=== PATIENT | male | born 1965 | race Caucasian/White ===

== ENCOUNTER 2024-08-04 17:49 | Inpatient (IN) | payer OTHER ==
[2024-08-04 18:35] LABS: Absolute Lymphocytes (CBC) 0.5 K/uL (0.7-4.9); Absolute Monocytes 1.4 K/uL (0.1-1.3); Basophils % 0.2 % (0-1.3); Hematocrit 48.8 % (39.6-49.0); Hemoglobin 15.2 g/dL (13.6-17.9); Lymphocytes % 2.7 % (15.3-44.8); MCH 28.3 pg (27.0-35.0); MCHC 31.1 g/dL (32.0-36.0); MCV 91.1 fL (80-100); MPV 8.3 fL (7.6-11.3); Monocytes % 7.1 % (3.3-12.3); Platelets 243 thou/uL (152-406); RBC Red Blood Cell Count 5.35 M/uL (4.33-5.43); Red Cell Distribution Width 14.5 % (12.1-15.2)
--- NOTE | 2024-08-04 18:39 | RAD REPORT ---
EXAMINATION: ONE VIEW CHEST XR CLINICAL INDICATION: CHEST PAIN TECHNIQUE: Frontal chest projection is submitted. Examination is limited by patient positioning and t echnique. COMPARISON: 11/26/2016 FINDINGS: The lungs are well inflated and clear. The heart is normal in size. No displaced fractures identified . IMPRESSION: No acute intrathoracic abnormalities.
[2024-08-04 18:42] LABS: PT Prothrombin Time 10.9 SECONDS (9.4-12.5); Protime INR 1.04
[2024-08-04] MEDS ORDERED: METOCLOPRAMIDE 10 MG/2mL INJ ONE (18:42)
[2024-08-04] MEDS ORDERED: MORPHINE 4 MG/ML SYR ONE (18:42)
[2024-08-04] MEDS ORDERED: PANTOPRAZOLE 40 MG INJ ONE (18:42)
[2024-08-04] MEDS ORDERED: NA CHLORIDE 0.9% 50 ML ONE (18:42)
[2024-08-04] MEDS ORDERED: NA CHLORIDE 0.9% 1,000 ML ONE ×2 (18:43→19:26)
[2024-08-04 18:54] LABS: ALT/SGPT 33 U/L (16-61); AST/SGOT 13 U/L (15-37); Albumin/Globulin Ratio 0.8 (1.1-1.8); Alkaline Phosphatase 118 U/L (45-117); Anion Gap 28.2 mEq/L (5.0-15.0); BUN Blood Urea Nitrogen 41 mg/dL (7-18); Bilirubin Direct 0.3 mg/dL (0-0.2); Bilirubin Indirect, Calculated 0.7 mg/dL (0.2-0.8); Globulin 3.9 g/dL (2.3-3.5); Glomerular Filtration Rate 62 ml/min (=/>90); Glucose Level 541 mg/dL (74-106); Lipase 26 U/L (13-75); Magnesium 2.7 mg/dL (1.6-2.4); NT PRO-BNP 399 pg/mL (<125); Potassium 5.2 mEq/L (3.5-5.1); Protein, Total 6.9 g/dL (6.4-8.2); Sodium Level 126 mEq/L (136-145); Troponin High Sensitivity 24.5 pg/mL (<58.9)
[2024-08-04 18:57] LABS: Bicarbonate < 8 mEq/L (21-32)
[2024-08-04] MEDS ORDERED: INSULIN REGULAR (HUMAN) 100 UNIT/ML ONE ×2 (19:21→20:27)
[2024-08-04 19:42] LABS: Blood Morphology Comment NOT SEEN (NOT SEEN); Platelet Estimate ADEQ; White Blood Cell Scan OK (OK)
--- NOTE | 2024-08-04 20:16 | RAD REPORT ---
EXAM: CT CHEST, ABDOMEN AND PELVIS WITH CONTRAST CLINICAL INDICATION: abdominal pain;Chest pain TECHNIQUE: CT chest, abdomen and pelvis was performed, following the administration of contrast, as p er department protocol. Axial, sagittal and coronal reconstructions were obtained. One or more of the following dose reduction techniques were used: Automated exposure control, adjustment of the mA a nd/or kV according to patient size, and/or iterative reconstruction. Unless otherwise specified, incidental findings do not require dedicated imaging follow-up. COMPARISON: No prior exam. FINDINGS: LUNGS: 10 mm nodule is seen abutting the superior mediastinal pleura in the medial right upper lobe. PLEURA: No pleural effusion. No pneumothorax. MEDIASTINUM AND LYMPH NODES: No mediastinal mass or fluid collection. Normal size mediastinal, hilar, and axillary lymph nodes. There is diffuse thickening of the esophagus with wall of the subscapularis measuring up to 7 mm. Fluid-filled esophagus. Small hiatal hernia. OSSEOUS STRUCTURES AND CHEST WALL: Intact. LIVER: The liver demonstrates mild fatty infiltration. No focal lesion or biliary dilatation is seen. Grossly unremarkable gallbladder. PANCREAS: No mass, ductal dilation, or pierre-pancreatic fluid. SPLEEN: Normal size. No focal lesion. ADRENALS: 18 mm right adrenal mass, indeterminate. KIDNEYS: Normal size and contour. No hydronephrosis. URINARY BLADDER: Normal contour. Significant distention. GASTROINTESTINAL TRACT: No bowel obstruction, free air, significant free fluid or abscess. Marked s tool is retained throughout the colon. APPENDIX: Appendix not visualized, but no inflammatory changes in region of appendix. LYMPH NODES: No lymphadenopathy. MUSCULOSKELETAL: No acute or suspicious osseous abnormality. OTHER: IMPRESSION: Diffuse esophageal thickening is circumferential fashion suspicious for esophagitis. Upper endoscopy may be useful for further evaluation. Significant constipation. Urinary bladder is distended. 18 mm indeterminate right renal mass. Statistically this is likely benign adenoma. Nonemergent MRI ad renal protocol may be useful for further characterization. 10 mm pulmonary nodule medial right upper lung abutting the mediastinal pleura. Consider a non-contrast chest CT at 3 months, a PET/CT, Note: These guidelines do not apply to patients younger than 35 years, immunocompromised patients, an d patients with cancer. F/u in patients with significant comorbidities as clinically warranted. For lung cancer screening, adhere to Lung-RADS guidelines. Reference: Radiology. 2017 Brian; 284(1):228-243
--- NOTE | 2024-08-04 20:25 | RAD REPORT ---
EXAM: Right upper quadrant ultrasound. CLINICAL HISTORY: gallbladder COMPARISON: None. FINDINGS: Gallbladder: Normal. Bile ducts: No intrahepatic or extrahepatic biliary dilatation. Common bile duct measures 3 mm. Limited imaging of the liver shows no concerning finding. IMPRESSION: Unremarkable exam.
[2024-08-04] MEDS ORDERED: NA CHLORIDE 0.9% 100 ML ONE (20:27)
--- NOTE | 2024-08-04 20:54 | EDPHYS ---
Physician Documentation [facility] Name: José Miguel Frankel Age: 58 yrs Sex: Male : 1965 Arrival Date: 08/04/2024 Time: 17:49 Bed 15 Private MD: ED Physician Nabil Singleton HPI: 08/04 18:15 This 58 yrs old Male presents to ER via EMS with complaints of Nausea/Vomiting, cp Constipation, Shortness Of Breath. 18:15 The patient presents to the emergency department with nausea, with "dry heaves", cp vomiting, that is continuous, abdominal pain, of the epigastric area, and radiates to the chest. 18:15 Associated signs and symptoms: Pertinent positives: anorexia, constipation, Pertinent cp negatives: fever, GI bleeding. Severity of symptoms: in the emergency department the symptoms are unchanged despite home interventions. Historical: - Allergies: 17:50 Compazine; db - PMHx: 17:50 Diabetes - NIDDM; Hypertension; db - Immunization history:: Adult Immunizations unknown. - Infectious Disease History:: Denies. - Social history:: Smoking status: Patient denies any tobacco usage or history of. ROS: 18:20 Constitutional: Positive for poor PO intake, Negative for fever, cp 18:20 Eyes: Negative for injury, pain, redness, and discharge, cp 18:20 ENT: Negative for drainage from ear(s), ear pain, difficulty swallowing, difficulty handling secretions, 18:20 Cardiovascular: Positive for chest pain, Negative for edema, palpitations, 18:20 Respiratory: Positive for shortness of breath, Negative for cough, wheezing, 18:20 Abdomen/GI: Positive for nausea and vomiting, constipation, anorexia, Negative for diarrhea, hematemesis, black/tarry stool, rectal bleeding, 18:20 Neuro: Negative for altered mental status, syncope, 18:20 All other systems are negative, Exam: 18:07 ECG was reviewed by the Attending Physician. cp 18:25 Constitutional: The patient appears in no acute distress, alert, awake, cp non-diaphoretic, non-toxic, well developed, well nourished, uncomfortable, 18:25 Head/Face: Normocephalic, atraumatic. cp 18:25 Eyes: Periorbital structures: appear normal, Conjunctiva: normal, no exudate, no injection, Sclera: no appreciated abnormality, Lids and lashes: appear normal, bilaterally, 18:25 ENT: External ear(s): are unremarkable, Nose: is normal, Mouth: Lips: moist, Oral mucosa: moist, Posterior pharynx: Airway: no evidence of obstruction, patent, 18:25 Chest/axilla: Inspection: normal, 18:25 Cardiovascular: Rate: tachycardic, Rhythm: regular, Edema: is not appreciated, JVD: is not appreciated, 18:25 Respiratory: the patient does not display signs of respiratory distress, Respirations: shallow respirations, that is mild, Breath sounds: are clear throughout, no decreased breath sounds, no stridor, no wheezing, 18:25 Abdomen/GI: Inspection: abdomen appears normal, Bowel sounds: active, all quadrants, Palpation: soft, in all quadrants, severe abdominal tenderness, in the epigastric area, voluntary guarding, is elicited in the epigastric area, 18:25 Neuro: Orientation: to person, place \\T\\ time. Mentation: is normal, Motor: moves all fours, no focal deficits, Sensation: no obvious gross deficits, Vital Signs: 17:49 BP 183 / 76; Pulse 109; Resp 24; Temp 97.3; Pulse Ox 100% on R/A; Weight 94.8 kg; db Height 5 ft. 10 in. ; 18:30 BP 178 / 91; Pulse 109; Resp 24; Pulse Ox 100% on R/A; db 17:49 Body Mass Index 29.99 (94.80 kg, 177.8 cm) db MDM: 18:09 Medical Screening Exam initiated cp 19:00 Differential diagnosis: gastritis, pancreatitis, viral gastroenteritis, cp gastroenteritis, dehydration, DKA, sepsis. 21:00 Data reviewed: vital signs, nurses notes, lab test result(s), EKG, radiologic studies, cp CT scan, plain films, and as a result, I will admit patient. 21:00 Management of patient was discussed with the following: Hospitalist: DR Moulton will cp admit to hospitalist services after discussion. I considered the following discharge prescriptions or medication management in the emergency department Medications were administered in the Emergency Department. See MAR. Independent interpretation of the following test(s) in the Emergency Department EKG: See my EKG interpretation above. Care significantly affected by the following chronic conditions: Diabetes, Hypertension. Counseling: I had a detailed discussion with the patient and/or guardian regarding the historical points, exam findings, and any diagnostic results supporting the discharge/admit diagnosis, the presence of at least one elevated blood pressure reading (>120/80) during this emergency department visit, lab results, radiology results, the need for further work-up and treatment in the hospital. Response to treatment: the patient's symptoms have mildly improved after treatment. 08/04 18:12 Order name: Basic Metabolic Panel; Complete Time: 19:16 cp 08/04 19:18 Interpretation: Reviewed. cp 08/04 18:12 Order name: CBC with Diff; Complete Time: 19:55 cp 08/04 18:57 Interpretation: Normal except: WBC 18.90; MCHC 31.1; ALINE% 90.0; LYM% 2.7; NEUT A 17.0; cp LYMA 0.5; MNA 1.4. 08/04 18:12 Order name: LFT's; Complete Time: 19:16 cp 08/04 19:55 Interpretation: Normal except: AST 13; ALK 118; BILID 0.3; ALB 3.0; GLOB 3.9; A/G 0.8. cp 08/04 18:12 Order name: Magnesium; Complete Time: 19:16 cp 08/04 18:12 Order name: NT PRO-BNP; Complete Time: 19:16 cp 08/04 18:12 Order name: PT-INR; Complete Time: 18:57 cp 08/04 18:12 Order name: Troponin HS; Complete Time: 19:16 cp 08/04 18:12 Order name: Lipase; Complete Time: 19:16 cp 08/04 18:15 Order name: Glucose, Ancillary Testing; Complete Time: 18:24 EDMS 08/04 19:43 Order name: CBC Smear Scan; Complete Time: 19:55 EDMS 08/04 19:55 Interpretation: Reviewed. cp 08/04 20:06 Order name: Glucose, Ancillary Testing; Complete Time: 20:08 EDMS 08/04 20:08 Interpretation: Reviewed. cp 08/04 20:37 Order name: Urinalysis W/Microscopic; Complete Time: 01:07 cp 08/04 20:52 Order name: ABG: VBG cp 08/04 20:52 Order name: Lactate w/ 2H reflex if indic.; Complete Time: 01:07 cp 08/04 20:52 Order name: BETA HYDROXYBUTYRATE; Complete Time: 01:07 cp 08/04 22:06 Order name: Glucose, Ancillary Testing; Complete Time: 01:07 EDMS 08/04 22:13 Order name: Basic Metabolic Panel EDMS 08/04 22:13 Order name: Basic Metabolic Panel EDMS 08/04 22:13 Order name: Basic Metabolic Panel EDMS 08/04 22:13 Order name: Basic Metabolic Panel EDMS 08/04 22:13 Order name: CBC with Automated Diff EDMS 08/04 22:13 Order name: CBC with Automated Diff EDMS 08/04 22:13 Order name: CBC with Automated Diff EDMS 08/04 22:13 Order name: CBC with Automated Diff EDMS 08/04 23:04 Order name: Glucose, Ancillary Testing; Complete Time: 01:07 EDMS 08/05 00:08 Order name: Glucose, Ancillary Testing; Complete Time: 01:07 EDMS 08/05 01:12 Order name: Glucose, Ancillary Testing EDMS 08/05 02:18 Order name: Glucose, Ancillary Testing EDMS 08/05 03:35 Order name: Glucose, Ancillary Testing EDMS 08/04 18:12 Order name: XRAY Chest (1 view); Complete Time: 18:57 cp 08/04 18:57 Interpretation: Report review. cp 08/04 18:36 Order name: US Abdomen Limited; Complete Time: 20:37 cp 08/04 20:37 Interpretation: Report reviewed. cp 08/04 19:19 Order name: CT Chest, Abdomen, Pelvis - W/Contrast; Complete Time: 20:37 cp 08/04 18:12 Order name: EKG; Complete Time: 18:12 cp 08/04 18:12 Order name: Cardiac monitoring; Complete Time: 18:21 cp 08/04 18:12 Order name: EKG - Nurse/Tech; Complete Time: 18:21 cp 08/04 18:12 Order name: IV Saline Lock; Complete Time: 18:21 cp 08/04 18:12 Order name: Labs collected and sent; Complete Time: 18:55 cp 08/04 18:12 Order name: O2 Per Protocol; Complete Time: 18:21 cp 08/04 18:12 Order name: O2 Sat Monitoring; Complete Time: 18:21 cp EC:07 Rate is 109 beats/min. Rhythm is regular. PA interval is normal. QRS interval is cp normal. QT interval is normal. T waves are Inverted in lead aVR. Interpreted by me. Reviewed by me. Administered Medications: 18:45 Drug: Pantoprazole IVP 40 mg IVP once Route: IVP; Site: right antecubital; db 19:00 Follow up: Response: No adverse reaction rg5 18:45 Drug: NS 0.9% IV 1000 ml IV at 1 bolus Per protocol; to be given as a bolus over 60 db minutes Route: IV; Rate: 1 bolus; Site: right antecubital; 19:30 Follow up: IV Status: Completed infusion rg5 18:45 Drug: metoCLOPramide IVP 10 mg IVP once; over 1 to 2 minutes Route: IVP; Site: right db antecubital; 19:00 Follow up: Response: No adverse reaction rg5 18:45 Drug: morphine IVP or IV 4 mg IVP once over 4 mins Route: IVP; Infused Over: 4 mins; db Site: right antecubital; 19:00 Follow up: Response: No adverse reaction; Pain is decreased rg5 19:15 Drug: Insulin Regular Human IVP 10 units IVP once {Co-Signature: 1 (nancy Trejo RN).} Route: IVP; Site: right antecubital; 21:00 Follow up: Response: No adverse reaction rg5 19:34 Drug: NS 0.9% IV 1000 ml IV at 1000 ml once; to be given as a bolus over 60 minutes rg5 Route: IV; Rate: 1000 ml; Site: right antecubital; 20:15 Follow up: IV Status: Completed infusion; IV Intake: 1000ml rg5 20:48 Drug: Insulin Drip - (Insulin Regular Human IVP 100 units, NS 0.9% IV 100 ml) IV at 8 rg5 units/hr continuous; Standard concentration 1unit/ml; Dose for DKA is 0.1 units/kg/hr {Co-Signature: 1 (Rose Mary Trejo RN).} Route: IV; Rate: 8 units/hr; Site: right antecubital; Point of Care Testing: Blood Glucose: 17:50 Blood Glucose: High (>450 mg/dL); db Ranges: Critical Glucose Levels:Adult <50 mg/dl or >400 mg/dl <40 mg/dl or >180 mg/dl Disposition: 08/05 20:30 Co-signature as Attending Physician, Nabil Singleton MD I reviewed the patient's care rt provided by the Advanced Practice Provider and agree with the diagnosis and treatment plan. Disposition Summary: 08/04/24 20:53 Hospitalization Ordered Notes: Hospitalization Status: Inpatient Admission cp Provider: Rafy Moulton cp Location: Intensive Care Unit cp Condition: Stable cp Problem: new cp Symptoms: have improved cp Bed/Room Type: Standard cp Room Assignment: 7-(08/05/24 01:52) cg Diagnosis - Diabetes mellitus due to underlying condition with ketoacidosis cp - Nausea with vomiting, unspecified cp - Epigastric pain cp - Chest pain, unspecified cp Forms: - Medication Reconciliation Form cp - SBAR form cp - Leadership Thank You Letter cp Critical care time excluding procedures: 01:08 Critical care time: Bedside Care: 5 minutes, Consultation: 25 minutes, Family cp Intervention: 5 minutes. Total time: 35 minutes Signatures: Dispatcher [employer] EDID Michael Urena PA PA cp Sole Pena, RN RN cg Anitha Ramirez, RN RN db Nabil Singleton MD MD rt Malachi Avilez RN RN rg5 Rose Mary Trejo RN me1 Corrections: (The following items were deleted from the chart) 08/04 20:37 20:37 Urinalysis W/Microscopic+U.LAB.BRZ ordered. [facility] 08/05 01:08 08/04 20:53 Diabetes mellitus due to underlying condition with hyperglycemia cp cp 08/05 01:52 08/04 20:53 cp cg
--- NOTE | 2024-08-04 20:54 | ER ---
Nurse's Notes [facility] Name: José Miguel Frankel Age: 58 yrs Sex: Male : 1965 Arrival Date: 08/04/2024 Time: 17:49 Bed 15 Private MD: Diagnosis: Diabetes mellitus due to underlying condition with ketoacidosis;Nausea with vomiting, unspecified;Epigastric pain;Chest pain, unspecified Presentation: 08/04 17:49 Chief complaint: EMS states: N/V STARTED AFTER TAKING OZEMPIC LAST THURSDAY. STATES db STOPPED TAKING OZEMPIC 1 YEAR AGO AND RESTARTED ON THURSDAY. TODAY HAS DIFFICULTY TAKING A DEEP BREATH. HAS NOT TAKEN INSULIN NOR CHECKED SUGAR SINCE THURSDAY. BG FOR EMS 416, PT TACHY CARDIC. GIVEN ASA 325 MG BY EMS. WENT [facility] AND SENT TO ER FOR ST DEPRESSION. Coronavirus screen: Client denies travel out of the [place] in the last 14 days. At this time, the client does not indicate any symptoms associated with coronavirus-19. Ebola Screen: Patient negative for fever greater than or equal to 101.5 degrees Fahrenheit, and additional compatible Ebola Virus Disease symptoms Patient denies exposure to infectious person. Patient denies travel to an Ebola-affected area in the 21 days before illness onset. No symptoms or risks identified at this time. Initial Sepsis Screen: Does the patient meet any 2 criteria? HR > 90 bpm. No. Patient's initial sepsis screen is negative. Does the patient have a suspected source of infection? No. Patient's initial sepsis screen is negative. Risk Assessment: Do you want to hurt yourself or someone else? Patient reports no desire to harm self or others. Onset of symptoms was July 31, 2024. Care prior to arrival: Medication(s) given: Normal saline infusion, 500 mL, IV initiated. 20 GA, in the right antecubital area, Glucose check: 416. 17:49 Method Of Arrival: EMS: [facility] db 17:49 Acuity: SUMIT 3 db Triage Assessment: 17:50 General: Appears in no apparent distress. comfortable, Behavior is calm, cooperative. db Pain: Complains of pain in abdomen. Neuro: Level of Consciousness is awake, alert, obeys commands, Oriented to person, place, time, situation. Respiratory: Airway is patent Respiratory effort is even, unlabored, Respiratory pattern is regular, symmetrical. GI: Reports upper abdominal pain, constipation, nausea, vomiting. Historical: - Allergies: 17:50 Compazine; db - PMHx: 17:50 Diabetes - NIDDM; Hypertension; db - Immunization history:: Adult Immunizations unknown. - Infectious Disease History:: Denies. - Social history:: Smoking status: Patient denies any tobacco usage or history of. Screenin:16 [facility] ED Fall Risk Assessment (Adult) History of falling in the last 3 months, db including since admission No falls in past 3 months (0 pts) Confusion or Disorientation No (0 pts) Intoxicated or Sedated No (0 pts) Impaired Gait No (0 pts) Mobility Assist Device Used No (0 pt) Altered Elimination No (0 pt) Score/Fall Risk Level 0 - 2 = Low Risk Oriented to surroundings, Maintained a safe environment. Abuse screen: Denies threats or abuse. Denies injuries from another. Nutritional screening: No deficits noted. Tuberculosis screening: No symptoms or risk factors identified. Assessment: 18:14 Reassessment: SEE TRIAGE FOR INITIAL ASSESSMENT. db 19:05 General: Appears uncomfortable, Behavior is calm, cooperative, appropriate for age. rg5 19:05 Pain: Denies pain. Neuro: Level of Consciousness is awake, alert, obeys commands, rg5 Oriented to person, place, time, situation. Cardiovascular: Reports chest pain, shortness of breath. Respiratory: Reports shortness of breath at rest Airway is patent Trachea midline Respiratory effort is even, unlabored, Respiratory pattern is regular, symmetrical. GI: Abdomen is round non-distended, Abd is soft and non tender Reports upper abdominal pain, vomiting. : No signs and/or symptoms were reported regarding the genitourinary system. EENT: No deficits noted. Derm: Skin is intact, Skin is dry, Skin is normal, Skin temperature is warm. Musculoskeletal: Circulation, motion, and sensation intact. Range of motion: intact in all extremities. 22:00 Reassessment: No changes from previously documented assessment. Patient and/or family rg5 updated on plan of care and expected duration. Pain level reassessed. Patient is alert, oriented x 3, equal unlabored respirations, skin warm/dry/pink. 22:25 Reassessment: aamir (spouse) [phone]. rg5 Vital Signs: 17:49 BP 183 / 76; Pulse 109; Resp 24; Temp 97.3; Pulse Ox 100% on R/A; Weight 94.8 kg; db Height 5 ft. 10 in. ; 18:30 BP 178 / 91; Pulse 109; Resp 24; Pulse Ox 100% on R/A; db 17:49 Body Mass Index 29.99 (94.80 kg, 177.8 cm) db ED Course: 17:50 Arm band placed on Patient placed in an exam room. db 17:55 EKG done. Maintain EMS IV. Dressing intact. Good blood return noted. Site clean \T\ dry. db Gauge \T\ site: 20 G RAC. 18:08 Patient arrived in ED. db 18:09 Michael Urena PA is PHCP. cp 18:09 Nabil Singleton MD is Attending Physician. cp 18:13 Triage completed. db 18:16 Patient has correct armband on for positive identification. Bed in low position. Call db light in reach. Side rails up X 1. Client placed on continuous cardiac and pulse oximetry monitoring. NIBP monitoring applied. telemetry monitor on. Pulse ox on. NIBP on. Warm blanket given. Pillow given. 18:20 Anitha Ramirez, RN is Primary Nurse. db 18:36 XRAY Chest (1 view) In Process Unspecified. EDMS 19:05 Door closed. Noise minimized. rg5 19:05 No provider procedures requiring assistance completed. Inserted saline lock: 20 gauge rg5 in left antecubital area, using aseptic technique. Blood collected. Flushed with 10 mL NS. 19:11 Malachi Avilez, RN is Primary Nurse. rg5 20:07 CT Chest, Abdomen, Pelvis - W/Contrast In Process Unspecified. EDMS 20:19 US Abdomen Limited In Process Unspecified. EDMS 20:53 Rafy Moulton MD is Hospitalizing Provider. cp 22:30 Provided Education on: needs for admit. rg5 22:30 Patient admitted, IV remains in place. intact, No redness/swelling at site. rg5 Administered Medications: 18:45 Drug: Pantoprazole IVP 40 mg IVP once Route: IVP; Site: right antecubital; db 19:00 Follow up: Response: No adverse reaction rg5 18:45 Drug: NS 0.9% IV 1000 ml IV at 1 bolus Per protocol; to be given as a bolus over 60 db minutes Route: IV; Rate: 1 bolus; Site: right antecubital; 19:30 Follow up: IV Status: Completed infusion rg5 18:45 Drug: metoCLOPramide IVP 10 mg IVP once; over 1 to 2 minutes Route: IVP; Site: right db antecubital; 19:00 Follow up: Response: No adverse reaction rg5 18:45 Drug: morphine IVP or IV 4 mg IVP once over 4 mins Route: IVP; Infused Over: 4 mins; db Site: right antecubital; 19:00 Follow up: Response: No adverse reaction; Pain is decreased rg5 19:15 Drug: Insulin Regular Human IVP 10 units IVP once {Co-Signature: naga (nancy Trejo RN).} Route: IVP; Site: right antecubital; 21:00 Follow up: Response: No adverse reaction rg5 19:34 Drug: NS 0.9% IV 1000 ml IV at 1000 ml once; to be given as a bolus over 60 minutes rg5 Route: IV; Rate: 1000 ml; Site: right antecubital; 20:15 Follow up: IV Status: Completed infusion; IV Intake: 1000ml rg5 20:48 Drug: Insulin Drip - (Insulin Regular Human IVP 100 units, NS 0.9% IV 100 ml) IV at 8 rg5 units/hr continuous; Standard concentration 1unit/ml; Dose for DKA is 0.1 units/kg/hr {Co-Signature: naga (Rose Mary Trejo RN).} Route: IV; Rate: 8 units/hr; Site: right antecubital; Medication: 19:05 VIS not applicable for this client. rg5 Point of Care Testing: Blood Glucose: 17:50 Blood Glucose: High (>450 mg/dL); db Ranges: Intake: 20:15 IV: 1000ml; Total: 1000ml. rg5 Outcome: 20:53 Decision to Hospitalize by Provider. cp 22:00 Admitted to ER Hold. Please see [facility] for further documentation. rg5 22:00 Condition: stable 22:00 Instructed on the need for admit, 08/05 04:00 Patient left the ED. rg5 Signatures: Dispatcher [facility] Michael Baugh PA PA cp Anitha Ramirez, RN RN db Malachi Avilez RN RN rg5 Rose Mary Trejo RN me1 Corrections: (The following items were deleted from the chart) 08/04 18:54 18:30 BP 178 / 91; Pulse 109bpm; Resp 20bpm; Pulse Ox 100% RA; db db
[2024-08-04 22:01] LABS: Specific Gravity > 1.030 (1.005-1.030); Sqamous Epithelial None Seen /HPF (None Seen); Urine Bacteria None Seen /HPF (<20); Urine Bilirubin NEGATIVE (Negative); Urine Blood Negative (Negative); Urine Clarity Clear (Clear); Urine Color Colorless (Yellow); Urine Culture Reflex Order NOT NEEDED; Urine Glucose 4+ (Over) (Negative); Urine Ketones 3+ (Negative); Urine Micro Reflex YN NO BILL MICROSCOPIC; Urine Mucus Slight /HPF (None Seen); Urine Nitrite NEGATIVE (Negative); Urine Protein TRACE (Negative); Urine RBC <5 /HPF (None Seen); Urine Urobilinogen Normal (Normal); Urine WBC <5 /HPF (<5)
[2024-08-04] MEDS ORDERED: ONDANSETRON 4 MG/2 ML VIAL IV PRN (22:08)
--- NOTE | 2024-08-04 22:08 | P.HP ---
Certification for Inpatient Patient admitted to: Inpatient With expected LOS: >2 Midnights Practitioner: I am a practitioner with admitting privileges, knowledge of patient current condition, hospital course, and medical plan of care. Services: Services provided to patient in accordance with Admission requirements found in Title 42 Section 412.3 of the Code of Federal Regulations Patient History Date of Service: 08/04/24 Reason for admission: DKA History of Present Illness: Nausea, vomiting, elevated blood sugar 58-year-old male with history of diabetes, hypertension presents to the ER with complaints of nausea vomiting and elevated blood sugar. Patient reports symptoms started 4 days ago. He reports that he previously was on Ozempic and he trialed it again on Thursday. Subsequently has felt ill. He normally takes insulin he did not take it. He was having nausea vomiting and some abdominal discomfort. He denies any recent diarrhea fevers or chills. He reports he drinks occasional alcohol. He states that he recently since last fall has taken steroids as needed. For hives. He reports the last time he took steroids was several days ago. He denies taking prednisone continuously. He states that he actually is constipated currently. In the emergency room patient had a CT scan of his chest abdomen pelvis. Blood sugar was elevated. Concern for DKA. He has received IV fluids and insulin drip has been started. Allergies prochlorperazine [From Compazine] Adverse Reaction (Intermediate, Verified 11/25/16 23:32) facial twitching Home Medications: Insulin Glargine,Hum.rec.anlog [Lantus] 25 unit SQ BID 11/26/16 Metformin HCl [Glucophage*] 250 mg PO BID 11/26/16 Mv-Mn/Iron/Folic Acid/Herb 190 [Megavite Caplet] 1 each PO DAILY 11/26/16 lisinopriL [Prinivil*] 20 mg PO DAILY 11/26/16 Aspirin [Aspirin EC 81 MG] 81 mg PO DAILY #30 tablet. 11/27/16 Atorvastatin Calcium [Lipitor] 10 mg PO BEDTIME #30 tab 11/27/16 Pantoprazole [Protonix Tab*] 40 mg PO DAILYAC #30 tab 11/27/16 - Past Medical/Surgical History Diabetic: Yes -: Diabetes mellitus -: Hypertension -: Right rotator cuff surgery -: Appendectomy -: Tonsillectomy Psychosocial/ Personal History: Patient served in the . He is a web ui developer. - Family History Father -: Cancer - Social History Alcohol use: Yes CD- Drugs: No Caffeine use: Yes Review of Systems 10-point ROS is otherwise unremarkable General: Weakness Gastrointestinal: Nausea, Vomiting Physical Examination - Physical Exam General: Alert, Oriented x3 HEENT: Atraumatic, Normocephalic Respiratory: Clear to auscultation bilaterally, Normal air movement Cardiovascular: Regular rate/rhythm, Normal S1 S2 Gastrointestinal: Soft and benign, Non-distended Musculoskeletal: No clubbing, No swelling Integumentary: No rashes - Studies Laboratory Data (last 24 hrs) 08/04/24 08/04/24 08/04/24 18:25 18:25 18:25 WBC 18.90 H Hgb 15.2 Hct 48.8 Plt Count 243 PT 10.9 INR 1.04 Sodium 126 L Potassium 5.2 H BUN 41 H Creatinine 1.33 H Glucose 541 H* Magnesium 2.7 H Total Bilirubin 1.0 AST 13 L ALT 33 Alkaline Phosphatase 118 H Lipase 26 Assessment and Plan - Problems (Diagnosis) (1) DKA (diabetic ketoacidosis) Current Visit: Yes Status: Acute (2) Diabetes mellitus Onset Date: 11/26/16 Current Visit: No Status: Chronic (3) Hypertension Onset Date: 11/26/16 Current Visit: No Status: Chronic - Plan 58-year-old male with history of diabetes, hypertension presents to the ER with complaints of nausea vomiting and elevated blood sugar. #DKA #IDDM #metabolic acidosis #N/V #constipation #DAKOTA plan: 1. admit to ICU 2. DKA protocol, IVF, Insulin gtt, BMP q4 hours, give one amp bicarb 3. dc ozempic 4. recommend to bring home CPAP unit 5. miralax colace Lovenox Full - Advance Directives Does patient have a Living Will: No Does patient have a Durable POA for Healthcare: No
[2024-08-04] MEDS: NA CHLORIDE 0.9% 1,000 ML IV SCH (23:00)
[2024-08-04] MEDS ORDERED: NA CHLORIDE 0.9% 2,000 ML ONE (23:25)
[2024-08-05 04:05] VITALS: BMI 28.8
[2024-08-05] MEDS ORDERED: GLUCAGON 1 MG/VIAL IM PRN (04:08)
[2024-08-05] MEDS ORDERED: D50W 25 GM/50 ML SYRINGE IV PRN (04:08)
[2024-08-05] MEDS ORDERED: D10W 125 ML IV PRN (04:10)
[2024-08-05] MEDS: D5 0.45 NS 1,000 ML IV SCH (04:11)
[2024-08-05] MEDS: PHENOL 1.4% ORAL SPRAY 180ML MM PRN (04:15)
[2024-08-05] MEDS ORDERED: INSULIN REGULAR, HUMAN 100 UNIT in NA CHLORIDE 0.9% 100 ML IV SCH (05:00)
[2024-08-05 06:28] LABS: Anion Gap 11.9 mEq/L (5.0-15.0); Potassium 3.9 mEq/L (3.5-5.1)
[2024-08-05 06:31] LABS: Absolute Lymphocytes (CBC) 1.3 K/uL (0.7-4.9); Absolute Monocytes 1.4 K/uL (0.1-1.3); Absolute Neutrophil 13.5 K/uL (1.8-8.0); Basophils % 0.1 % (0-1.3); Hematocrit 40.3 % (39.6-49.0); Hemoglobin 13.4 g/dL (13.6-17.9); Lymphocytes % 8.1 % (15.3-44.8); MCH 28.9 pg (27.0-35.0); MCHC 33.4 g/dL (32.0-36.0); MCV 86.6 fL (80-100); MPV 8.1 fL (7.6-11.3); Monocytes % 8.9 % (3.3-12.3); Neutrophils % 82.9 % (41.7-73.7); Platelets 209 thou/uL (152-406); RBC Red Blood Cell Count 4.65 M/uL (4.33-5.43); Red Cell Distribution Width 13.8 % (12.1-15.2)
[2024-08-05] MEDS: ENOXAPARIN 40 MG/0.4 ML SQ SCH (08:18)
[2024-08-05] MEDS: INSULIN REGULAR (HUMAN) 100 UNIT/ML SQ SCH (08:18)
[2024-08-05 09:58] VITALS: O2SAT 100
--- NOTE | 2024-08-05 10:24 | P.PN ---
Subjective Date of Service: 08/05/24 Chief Complaint: DKA Subjective: Improving, Doing well Patient improved this morning states he will never take Ozempic again. He states he had significant nausea with ozempic. His nausea has resolved. His appetite is improving. He is asking for breakfast. He denies any pain. Denies fevers and chills. Discussed with nursing staff at bedside. Physical Examination - Vital Signs Temperature: 97.3 F Blood Pressure: 146/75 Pulse: 102 Respirations: 16 Pulse Ox (%): 100 - Physical Exam General: Alert, Oriented x3 Respiratory: Clear to auscultation bilaterally Cardiovascular: No edema, Normal pulses Gastrointestinal: Normal bowel sounds Musculoskeletal: No clubbing, No swelling Integumentary: No rashes Neurological: Normal gait, Normal speech - Studies Laboratory Data (last 24 hrs) 08/04/24 08/04/24 08/04/24 18:25 18:25 18:25 WBC 18.90 H Hgb 15.2 Hct 48.8 Plt Count 243 PT 10.9 INR 1.04 Sodium 126 L Potassium 5.2 H BUN 41 H Creatinine 1.33 H Glucose 541 H* Magnesium 2.7 H Total Bilirubin 1.0 AST 13 L ALT 33 Alkaline Phosphatase 118 H Lipase 26 Assessment And Plan - Current Problems (Diagnosis) (1) DKA (diabetic ketoacidosis) Current Visit: Yes Status: Acute Qualifiers: Diabetes mellitus type: type 2 (2) Nausea & vomiting Current Visit: Yes Status: Acute Qualifiers: Vomiting type: unspecified Qualified Code(s): R11.2 - Nausea with vomiting, unspecified (3) Hypertension Onset Date: 11/26/16 Current Visit: No Status: Chronic (4) DAKOTA (obstructive sleep apnea) Current Visit: Yes Status: Chronic (5) Hyperlipidemia Current Visit: No Status: Chronic Qualifiers: Hyperlipidemia type: mixed hyperlipidemia Qualified Code(s): E78.2 - Mixed hyperlipidemia (6) GERD (gastroesophageal reflux disease) Onset Date: 11/27/16 Current Visit: No Status: Chronic Qualifiers: Esophagitis presence: esophagitis presence not specified Qualified Code(s): K21.9 - Gastro-esophageal reflux disease without esophagitis - Plan off insulin gtt continue IV fluids and transition to diabetic diet Anion gap closed Metabolic acidosis resolved Discontinue ozempic replace K replace magnesium start lantus regimen and slidng scale medium dose DVT prophylaxis with Lovenox Full code
[2024-08-05] MEDS: INSULIN GLARGINE 100 UNIT/ML SQ SCH (20:35)
[2024-08-06 04:51] LABS: Absolute Lymphocytes (CBC) 1.2 K/uL (0.7-4.9); Absolute Monocytes 1.1 K/uL (0.1-1.3); Basophils % 0.1 % (0-1.3); Hematocrit 37.8 % (39.6-49.0); Lymphocytes % 11.8 % (15.3-44.8); MCH 29.6 pg (27.0-35.0); MCHC 34.4 g/dL (32.0-36.0); MPV 8.2 fL (7.6-11.3); Monocytes % 10.3 % (3.3-12.3); Neutrophils % 77.8 % (41.7-73.7); Nucleated Red Blood Cells % 0.1 % (0-0); Platelets 172 thou/uL (152-406); Red Cell Distribution Width 13.9 % (12.1-15.2)
--- NOTE | 2024-08-06 06:35 | P.PN ---
Date of Service: 08/06/24 Subjective: Eating and drinking well. He states he feels ready to go home he will follow-up with his primary care physician. We discussed following a diabetic diet. Review of Systems 10-point ROS is otherwise unremarkable General: Weakness Gastrointestinal: Nausea, Vomiting Physical Examination - Vital Signs Temperature: 97.3 F Blood Pressure: 146/75 Pulse: 102 Respirations: 16 Pulse Ox (%): 100 - Physical Exam General: Alert, Oriented x3 Respiratory: Clear to auscultation bilaterally Cardiovascular: No edema, Normal pulses Gastrointestinal: Normal bowel sounds Musculoskeletal: No clubbing, No swelling Integumentary: No rashes Neurological: Normal gait, Normal speech - Studies Laboratory Data (last 24 hrs) 08/04/24 08/04/24 08/04/24 18:25 18:25 18:25 WBC 18.90 H Hgb 15.2 Hct 48.8 Plt Count 243 PT 10.9 INR 1.04 Sodium 126 L Potassium 5.2 H BUN 41 H Creatinine 1.33 H Glucose 541 H* Magnesium 2.7 H Total Bilirubin 1.0 AST 13 L ALT 33 Alkaline Phosphatase 118 H Lipase 26 Assessment And Plan - Current Problems (Diagnosis) (1) DKA (diabetic ketoacidosis) Current Visit: Yes Status: Acute Qualifiers: Diabetes mellitus type: type 2 (2) Nausea & vomiting Current Visit: Yes Status: Acute Qualifiers: Vomiting type: unspecified Qualified Code(s): R11.2 - Nausea with vomiting, unspecified (3) Hypertension Onset Date: 11/26/16 Current Visit: No Status: Chronic (4) DAKOTA (obstructive sleep apnea) Current Visit: Yes Status: Chronic (5) Hyperlipidemia Current Visit: No Status: Chronic Qualifiers: Hyperlipidemia type: mixed hyperlipidemia Qualified Code(s): E78.2 - Mixed hyperlipidemia (6) GERD (gastroesophageal reflux disease) Onset Date: 11/27/16 Current Visit: No Status: Chronic Qualifiers: Esophagitis presence: esophagitis presence not specified Qualified Code(s): K21.9 - Gastro-esophageal reflux disease without esophagitis - Plan Tolerating diet Continue Lantus twice daily Discontinue ozempic Electrolytes replace DVT prophylaxis with Lovenox Full code
--- NOTE | 2024-08-06 07:59 | P.DS ---
Admission Date: 08/04/24 Discharge Date: 08/06/24 Disposition: ROUTINE DISCHARGE Discharge Condition: GOOD Reason for Admission: DKA - Problems (1) DKA (diabetic ketoacidosis) Current Visit: Yes Status: Acute Qualifiers: Diabetes mellitus type: type 2 Diabetes mellitus complication detail: without coma Qualified Code(s): E11.10 - Type 2 diabetes mellitus with ketoacidosis without coma (2) Nausea & vomiting Current Visit: Yes Status: Acute Qualifiers: Vomiting type: unspecified Qualified Code(s): R11.2 - Nausea with vomiting, unspecified (3) Hypertension Onset Date: 11/26/16 Current Visit: No Status: Chronic (4) DAKOTA (obstructive sleep apnea) Current Visit: Yes Status: Chronic (5) Hyperlipidemia Current Visit: No Status: Chronic Qualifiers: Hyperlipidemia type: mixed hyperlipidemia Qualified Code(s): E78.2 - Mixed hyperlipidemia (6) GERD (gastroesophageal reflux disease) Onset Date: 11/27/16 Current Visit: No Status: Chronic Qualifiers: Esophagitis presence: esophagitis presence not specified Qualified Code(s): K21.9 - Gastro-esophageal reflux disease without esophagitis Hospital Course: This 58-year-old male with a past medical history of type 2 diabetes,, hypertension, obstructive sleep apnea, who presented with hyperglycemia and was found to be in diabetic ketoacidosis. He was transferred to the intensive care unit and started on insulin drip, IV fluids, electrolyte replacement. His anion gap closed and his bicarbonate level returned to normal. He was switched over to his longstanding insulin regimen of Lantus. he discussed stopping his Ozempic as he believes this caused his DKA. He had a long discussion with observing a diabetic diet and following up closely with his primary care physician. The rest of his hospital stay has otherwise been unremarkable. He is now tolerating a diet. He is medically optimized for discharge. Vital Signs/Physical Exam: Temp Pulse Resp BP Pulse Ox 98.1 F 89 16 149/72 H 96 08/06/24 04:00 08/06/24 04:00 08/06/24 04:00 08/06/24 04:00 08/06/24 04:00 General: Alert, In no apparent distress HEENT: Atraumatic, Normocephalic Neck: Supple, 2+ carotid pulse no bruit Respiratory: Clear to auscultation bilaterally, Normal air movement Cardiovascular: No edema Capillary refill: <2 Seconds Gastrointestinal: Normal bowel sounds Musculoskeletal: No clubbing Integumentary: No rashes Neurological: Normal gait, Normal speech Lymphatics: No axilla or inguinal lymphadenopathy Laboratory Data at Discharge: WBC 10.30 thou/uL (4.3-10.9) 08/06/24 04:04 Hgb 13.0 g/dL (13.6-17.9) L 08/06/24 04:04 Hct 37.8 % (39.6-49.0) L 08/06/24 04:04 Plt Count 172 thou/uL (152-406) 08/06/24 04:04 PT 10.9 SECONDS (9.4-12.5) 08/04/24 18:25 INR 1.04 08/04/24 18:25 Sodium 135 mEq/L (136-145) L D 08/05/24 05:59 Potassium 3.9 mEq/L (3.5-5.1) D 08/05/24 05:59 BUN 31 mg/dL (7-18) H 08/05/24 05:59 Creatinine 0.71 mg/dL (0.70-1.30) 08/05/24 05:59 Glucose 188 mg/dL (74-106) H 08/05/24 05:59 Magnesium 2.7 mg/dL (1.6-2.4) H 08/04/24 18:25 Total Bilirubin 1.0 mg/dL (0.2-1.0) 08/04/24 18:25 AST 13 U/L (15-37) L 08/04/24 18:25 ALT 33 U/L (16-61) 08/04/24 18:25 Alkaline Phosphatase 118 U/L (45-117) H 08/04/24 18:25 Lipase 26 U/L (13-75) 08/04/24 18:25 Home Medications: Insulin Glargine,Hum.rec.anlog [Lantus] 25 unit SQ BID 11/26/16 Mv-Mn/Iron/Folic Acid/Herb 190 [Megavite Caplet] 1 each PO DAILY 11/26/16 lisinopriL [Prinivil*] 20 mg PO DAILY 11/26/16 Aspirin [Aspirin EC 81 MG] 81 mg PO DAILY #30 tablet.dr 11/27/16 Diet: ADA Activity: Ad yang Followup: KEVIN BROWN [Primary Care Provider] -
[2024-08-06 08:36] VITALS: BP 161/89; TEMP 98.5
[2024-08-06] MEDS: INSULIN GLARGINE 100 UNIT/ML SQ SCH (08:46)
== END 2024-08-06 11:10 | disposition home or self-care (01) | DRG 639 ==
LOC: ER 17:49 → ERHOLD 22:08 → 3RD-ICU 08-05 03:37 → 2ND 08-05 21:34
PROVIDERS: ADMIT Internal Medicine; ATTEND Family Medicine
DX: E11.10 Type 2 diabetes mellitus with ketoacidosis without coma (principal); Z79.4 Long term (current) use of insulin; Z79.85 Long-term (current) use of injectable non-insulin antidiabetic drugs; I10 Essential (primary) hypertension; G47.33 Obstructive sleep apnea (adult) (pediatric); K21.9 Gastro-esophageal reflux disease without esophagitis
CPT/HCPCS: 36415; 71045; 71260; 74177; 76705; 80048; 80076; 81001; 82010; 82947; 83605; 83690; 83735; 83880; 84484; 85025; 85610; 93005; J1650; J2470; J2765; J7030; J7799; Q9967